=== PATIENT | female | born 1955 | race Caucasian/White ===

== ENCOUNTER 2019-12-08 14:05 | Outpatient (CLI) | payer BC, SELFPAY ==
--- NOTE | ~2019-12-08 | MM_ITS ---
EXAMINATION: MM screening phuc BI w dani HISTORY: Screening mammogram TECHNIQUE: Craniocaudal and mediolateral oblique 3-D tomosynthesis images were obtained and synthetic 2-D images were generated. CAD analysis was submitted and interpreted. COMPARISON: 04/20/2018 postbiopsy diagnostic left mammogram 04/06/2018 diagnostic left digital mammogram and limited left breast ultrasound 09/30/2017 limited left breast ultrasound 09/26/2017 bilateral digital screening mammogram BREAST PARENCHYMAL COMPOSITION: The breasts are almost entirely fatty. FINDINGS: There is a biopsy marker on the left; history of prior benign left breast biopsy. There is no evidence of suspicious mass, calcification, or architectural distortion to suggest malignancy in e ither breast. There has been no suspicious interval change. IMPRESSION: 1. No mammographic evidence of malignancy. 2. Recommend routine screening mammography in one year. BI-RADS Category 1: Negative Reviewed, dictated and finalized at location A.
--- NOTE | ~2019-12-08 | DEXA_ITS ---
Bone Density Report Name: Brittny Chan Age: 64 Sex: Female Ethnicity: White Date of : 1955 Indication: postmenopausal; height loss; hysterectomy; Referring Provider: KARI FOX Study: Bone densitometry was performed. Exam Date: December 08, 2019 Accession number: [id number] Bone Density: Region BMD T-score Z-score Classification AP Spine (L1, L2, L4) 1.017 -0.2 1.5 Normal Femoral Neck (Left) 0.709 -1.3 0.2 Osteopenia Total Hip (Left) 0.922 -0.2 1.0 Normal Total Hip Bilateral Avg 0.995 0.4 1.6 Normal Femoral Neck (Right) 0.701 -1.3 0.1 Osteopenia Total Hip (Right) 1.067 1.0 2.2 Normal World Health Organization criteria for BMD impression classify patients as: Normal (T-score at or above -1.0), Osteopenia (T-score between -1.0 and -2.5), or Osteoporosis (T-score at or below -2.5). 10-year Fracture Risk(1): Major Osteoporotic Fracture 7.5% Hip Fracture 1.0% Reported Risk Factors: [place] (), Neck BMD=0.701, BMI=38.1, smoking (1) FRAX(R) Version 3.08. Fracture probability calculated for an untreated patient. Fracture probability may be lower if the patient has received treatment. Clinical Information Provided by Patient: Smokes Has used the following medications: Vitamin D Has the following medical conditions: Hysterectomy Patient maximum height was 66 Menopause Age: 43 No regular weight bearing exercise Drinks caffeinated beverages Onset of menses at age 14 Number of children 0 Impression: The patient has low bone mass, based on the Left Femoral Neck T-score. The patient has an estimated ten-year risk of hip fracture of 1% and an estimated ten-year risk of major fracture of 7.5%, based on the WHO FRAX algorithm. The patient has risk factors, including: smoking. Discussion: BONE DENSITY IS LOW AT ONE OR MORE SKELETAL SITES. This patient's lowest T-score is low at one or more skeletal sites. It meets the World Health Organization's (WHO) criteria for ?low bone mass? (T-score between -1.0 and -2.5). The patient's 10-year risk of fracture as calculated by FRAX is less than the threshold where pharmacological therapy is recommended by the National Osteoporosis Foundation (NOF). However, all treatment decisions require clinical judgment and consideration of individual patient factors, including patient preferences, comorbidities, previous drug use, risk factors not captured in the FRAX model (e.g., frailty, falls, vitamin D deficiency, increased bone turnover, interval significant decline in bone density) and possible under or overestimation of fracture risk by FRAX. The patient should follow a healthful lifestyle (good nutrition with adequate calcium and vitamin D, and appropriate weight-bearing exercise). Follow-Up: Consider repeating this study in 2 to 3 years to reassess this
== END 2019-12-08 14:06 | disposition home or self-care (01) ==
LOC: ANHIMG 14:06
PROVIDERS: PCP Internal Medicine; Visit Provider Internal Medicine
DX: Z12.31 Encounter for screening mammogram for malignant neoplasm of breast (principal); Z78.0 Asymptomatic menopausal state; M85.89 Other specified disorders of bone density and structure, multiple sites
CPT/HCPCS: 77063; 77067; 77080

== ENCOUNTER → 2022-10-02 15:26 | Outpatient (CLI) | payer BC, MEDICARE, SELFPAY ==
--- NOTE | ~2022-10-02 | CT_ITS ---
EXAMINATION: CT LE LT wo con DATE: 10/02/2022 16:01 INDICATION: Left ankle stress fracture TECHNIQUE: High resolution computed tomography (CT) of the left lower leg from the knee through the f oot was performed without intravenous contrast. Additional sagittal and coronal reconstructions were performed. Automated exposure control and iterative reconstruction technique were employed. The dose- length product was 457.55 mGy-cm. COMPARISON: None FINDINGS: Solid osseous fusion consistent with relatively advanced healing across an oblique fracture of the di stal fibula which crosses the medial cortex approximately 5 mm above the level of the ankle joint kenny e. There is some residual discernible lucency along the fracture line. The fracture is healing in ess entially anatomic alignment. No other fractures identified. 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 Additional mild osteoarthritis at the ankle and multiple additional joints in the mid and forefoot. There is a promin ent os trigonum with additional mild osteoarthritis at its articulation with the talus and calcaneus. No ankle joint effusion. Joint space at the left knee appear relatively preserved on nonweightbearin g imaging. Small Achilles calcaneal spur and moderate sized Achilles calcaneal spur with few small en thesopathic ossicles in the distal Achilles tendon. IMPRESSION: 1. Relatively advanced healing of an oblique distal fibular fracture which remains in near-anatomic a lignment. No acute osseous abnormality. 2. 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 Reviewed, dictated and finalized at location A. IMPRESSION: 1. Relatively advanced healing of an oblique distal fibular fracture which codi ins in near-anatomic alignment. No acute osseous abnormality. 2. Polyarticular osteoarthritis, severe at the medial side of the posterior fac et of the subtalar joint and mild at the left ankle and multiple joints in the mid and forefoot.
--- NOTE | ~2022-10-02 | XR_ITS ---
EXAMINATION: XR ankle LT min 3V DATE: 10/02/2022 15:51 INDICATION: Left fibular fracture. TECHNIQUE: 4 views of left ankle were obtained. COMPARISON: None. FINDINGS: There is an oblique fracture of distal ulnar diaphysis with callus formation. The distal fr acture fragment demonstrates 2 mm posterolateral displacement. There is mild ankle joint osteoarthrit is. There is heterotopic ossification distal to lateral malleolus. There are enthesophytes at the pos terior and plantar aspects of calcaneal tuberosity. IMPRESSION: 1. Healing fracture of distal fibular diaphysis. 2. Mild ankle joint osteoarthritis. Reviewed, dictated and finalized at location E.
== END ==
PROVIDERS: PCP Podiatrist Foot & Ankle Surgery; Visit Provider Podiatrist Foot & Ankle Surgery
DX: M84.372D Stress fracture, left ankle, subsequent encounter for fracture with routine healing (principal); M19.072 Primary osteoarthritis, left ankle and foot
CPT/HCPCS: 73610; 73700